=== PATIENT | female | born 1985 | race Caucasian/White ===

== ENCOUNTER 2019-08-21 16:37 | Emergency (ER) | payer OTHER, SELFPAY ==
[2019-08-21 16:47] VITALS: BP 158/96; PULSE 80; RESP 16; TEMP 37; O2SAT 99
--- NOTE | 2019-08-21 17:06 | ED.GENADULT ---
HPI - General Adult General Chief complaint: Wound/Laceration Stated complaint: bite Time Seen by Provider: 08/21/19 17:06 Source: patient and RN notes reviewed Mode of arrival: ambulatory Limitations: no limitations History of Present Illness HPI narrative: This is a 33 years old female presented office for evaluation of skin lesion on her right lower leg. The lesion was itchy at first and she felt a pop. The very next day; she noticed the lesion has gotten more red and increase in size. Currently, denies any pain/itchiness. She is not immunized due to personal/parental's choice. Related Data Allergies Allergy/AdvReac Type Severity Reaction Status Date / Time No Known Allergies Allergy Verified 08/21/19 16:48 Review of Systems Review of Systems: Narrative: CONSTITUTIONAL: Denies fever ENT: Denies congestion CARDIOVASCULAR: Denies chest pain RESPIRATORY: Denies dyspnea GASTROINTESTINAL: Denies abdominal pain, nausea, vomiting SKIN: Reports red lesion on her right leg MUSCULOSKELETAL: Denies acute back pain NEUROLOGIC: Denies lightheaded All other systems reviewed are negative, except as documented in HPI. PMFSH Comments At time of signature, I agree with nursing past medical, surgical, social and family history. There is no relevant family history pertinent to the presenting complaint. Exam Narrative: Exam Narrative: GENERAL: This is a well-nourished, well-developed patient, in no apparent distress. CARDIOVASCULAR: Regular rate and rhythm without murmurs, gallops, or rubs. RESPIRATORY: Clear to auscultation. Breath sounds equal bilaterally. No wheezes, rales, or rhonchi. GASTROINTESTINAL: Abdomen soft, non-tender, nondistended. Bowel sounds are active. No hepato-splenomegaly, or palpable masses. No guarding. SKIN: right lateral lower leg noted very small localize insect bite omar without edematous/erythema or lymphandentitis. NEURO: awake, alert, and oriented to person, place and time. There were no obvious focal neurologic abnormalities. Steady gait EXTREMITIES: Normal range of motion. No edema. [place] Coma Scale Eye Opening: Spontaneous 4 [place] Coma Scale Motor: Obeys Commands 6 [place] Coma Scale Verbal: Oriented 5 Course Vital Signs Vital signs: Vital Signs Temperature 98.6 F 08/21/19 16:47 Pulse Rate 80 08/21/19 16:47 Respiratory Rate 16 08/21/19 16:47 Blood Pressure 158/96 H 08/21/19 16:47 Pulse Oximetry 99 08/21/19 16:47 Temperature 98.6 F 08/21/19 16:47 Pulse Rate 80 08/21/19 16:47 Respiratory Rate 16 08/21/19 16:47 Blood Pressure 158/96 H 08/21/19 16:47 Pulse Oximetry 99 08/21/19 16:47 Medical Decision Making MDM Narrative Medical decision making narrative: Elevated BP noted: patient is informed that they may have pre-hypertension or hypertension based on a blood pressure reading in the department. I recommend the patient call the primary care provider listed on their discharge instructions or a physician of their choice this week to arrange follow-up for further evaluation of possible pre-hypertension or hypertension within 1-2week. Discharge instructions reviewed with patient, as well as provided in writing per nursing staff. The instructions also include specific and strict return/GO TO THE ER as well as f/u information. All questions have been answered, and the patient deny any further questions with discharge and discharge plan. Differential Diagnosis Differential Diagnosis: dermatitis, insect bite, birthmark, eczema, psorasis Vital Signs Vital Signs: Vital Signs Temperature 98.6 F 08/21/19 16:47 Pulse Rate 80 08/21/19 16:47 Respiratory Rate 16 08/21/19 16:47 Blood Pressure 158/96 H 08/21/19 16:47 Pulse Oximetry 99 08/21/19 16:47 Temperature 98.6 F 08/21/19 16:47 Pulse Rate 80 08/21/19 16:47 Respiratory Rate 16 08/21/19 16:47 Blood Pressure 158/96 H 08/21/19 16:47 Pulse Oximetry 99 08/21/19 16:47 Critica
== END 2019-08-21 17:23 | disposition home or self-care (01) ==
PROVIDERS: Emergency Provider Nurse Practitioner
DX: S80.861A Insect bite (nonvenomous), right lower leg, initial encounter (principal); W57.XXXA Bitten or stung by nonvenomous insect and other nonvenomous arthropods, initial encounter
CPT/HCPCS: 99203; G0463